=== PATIENT | male | born 1975 ===

== ENCOUNTER 2017-05-09 02:29 | Emergency (ER) | payer SELFPAY ==
--- NOTE | 2017-05-09 02:56 | C.PDOC ---
History Of Present Illness Patient presents to ED for evaluation, states he has occipital headache/upper neck pain that he always gets when his blood pressure is elevated. Patient has h/o HTN, typically takes Losartan/HCTZ 50/12.5. [place] and since he did not have enough medications, he has only been taking half doses of his medication. Since he had pain today and his BP was elevated, he also took 3 additional Captoprils (from family member) today. He denies chest pain, SOB, palpitations, dizziness, visual changes, facial droop, slurred speech , sensory changes, extremity weakness. Time Seen by Provider: 05/09/17 02:43 Chief Complaint (Nursing): High Blood Pressure History Per: Patient History/Exam Limitations: no limitations Onset/Duration Of Symptoms: Hrs Current Symptoms Are (Timing): Better Associated Symptoms: Headache. denies: Chest Pain, Dyspnea, Dizziness, Blurred Vision, Focal Weakness Severity: Mild Exacerbating Factor(s): Pos: Recent Change In Medication, Increased Salt/Salty Foods Past Medical History Reviewed: Historical Data, Nursing Documentation, Vital Signs Vital Signs: Last Vital Signs Temp 97.4 F L 05/09/17 02:59 Pulse 88 05/09/17 03:10 Resp 20 05/09/17 03:10 BP 188/72 H 05/09/17 03:10 Pulse Ox 97 05/09/17 03:10 - Medical History PMH: HTN Family History: States: No Known Family Hx - Social History Hx Alcohol Use: No Hx Substance Use: No Review Of Systems Except As Marked, All Systems Reviewed And Found Negative. Constitutional: Negative for: Fever, Chills Cardiovascular: Negative for: Chest Pain, Palpitations Respiratory: Negative for: Shortness of Breath Neurological: Positive for: Headache. Negative for: Weakness, Numbness, Altered Mental Status, Dizziness Physical Exam - Physical Exam Appears: Well, Non-toxic, No Acute Distress Head: Atraumatic, Normacephalic Eye(s): bilateral: Normal Inspection, PERRL, EOMI Cardiovascular: Rhythm Regular Respiratory: Normal Breath Sounds, No Rales, No Rhonchi, No Wheezing Extremity: Normal ROM Neurological/Psych: Oriented x3, Normal Speech, Normal Cognition, Normal Cranial Nerves, No Cerebellar Signs, Normal Motor, Normal Sensation Gait: Steady ED Course And Treatment O2 Sat by Pulse Oximetry: 97 (RA) Pulse Ox Interpretation: Normal Progress Note: Blood pressure repeated by me, left arm 155/99. Patient offered tylenol for headache but refused, states symptoms are due to elevated BP and are improving since BP is coming down. Rx given for Losartan/HCTZ, and patient instructed to start it later today, since he took multiple Captoprils (3) and half of his usual medication today. He was also instructed to follow up in medical clinic in 1-2 days, and understands he should return to ED if symptoms worsen. Reevaluation Time: 03:10 Reassessment Condition: Improved Disposition Counseled Patient/Family Regarding: Diagnosis, Need For Followup, Rx Given - Disposition Referrals: [facility] [Outside] Disposition: HOME/ ROUTINE Disposition Time: 03:15 Condition: STABLE Additional Instructions: SEGUIMIENTO EN LA CLNICA MDICA EN 1-2 LINARES USE MEDICAMENTOS SEGN LO INDICADO REGRESE A LA MARIA D DE EMERGENCIA SI PADMINI SNTOMAS FUNCIONAN Prescriptions: Losartan/Hydrochlorothiazide [Losartan-Hctz 50-12.5 mg Tab] 1 each PO DAILY #30 tablet Instructions: Hypertension (ED) Forms: [employer] (Swedish) Print Language: MONEGASQUE - Clinical Impression Clinical Impression: Hypertension
[2017-05-09 03:08] VITALS: PULSE 88; TEMP 97.4; O2SAT 97
[2017-05-09 03:11] VITALS: BP 188/72; RESP 20
== END 2017-05-09 03:10 | disposition home or self-care (01) ==
LOC: C.ER 02:29
DX: I10 Essential (primary) hypertension (principal)